=== PATIENT | female | born 1990 | race Caucasian/White ===

== ENCOUNTER 2019-06-11 16:36 | Inpatient (IN) | payer OTHER ==
[~2019-06-11] VITALS: Ht 167.6 cm; Wt 78.1 kg
[2019-06-11] MEDS: D5%-LACTATED RINGERS 1,000 ML IV SCH (17:12)
[2019-06-11] MEDS ORDERED: OXYTOCIN 30U/ 0.9% NaCL 500ML 500 ML IV PRN (17:12)
[2019-06-11] MEDS ORDERED: OXYTOCIN 30U/ 0.9% NaCL 500ML 500 ML IV ONE (17:12)
[2019-06-11] MEDS: LACTATED RINGERS 1,000 ML IV SCH (17:28)
[2019-06-11 17:30] VITALS: BP 143/95
[2019-06-11] MEDS ORDERED: FENTANYL PF 100 MCG/2ML IVPush PRN (17:30)
[2019-06-11] MEDS ORDERED: TERBUTALINE 1 MG/ML, 1ML IVPush PRN (17:30)
[2019-06-11] MEDS ORDERED: TERBUTALINE 1 MG/ML, 1ML SQ PRN (17:30)
[2019-06-11] MEDS ORDERED: CALCIUM CARBONATE 500 MG TAB.CHEW PO PRN (17:30)
[2019-06-11] MEDS ORDERED: FENTANYL PF 100 MCG/2ML IV PRN (17:30)
[2019-06-11 17:40] LABS: BASOPHILS # (AUTO) 0.02 x10^3/uL (0-0.1); BASOPHILS % (AUTO) 0 % (0-1); EOSINOPHILS # (AUTO) 0.04 x10^3/uL (0-0.4); EOSINOPHILS % (AUTO) 0 % (1-7); LYMPHOCYTES # (AUTO) 1.48 x10^3/uL (1-3.4); LYMPHOCYTES % (AUTO) 18 % (22-44); MD NO; MEAN CORPUSCULAR HEMOGLOBIN 30.8 pg (27.0-34.8); MEAN CORPUSCULAR HGB CONC 33.7 g/dL (32.4-35.8); MEAN CORPUSCULAR VOLUME 91.6 fL (80-100); MEAN PLATELET VOLUME 8.5 fL (7.4-10.4); MONOCYTES # (AUTO) 0.57 x10^3/uL (0.2-0.8); MONOCYTES % (AUTO) 7 % (2-9); NEUTROPHILS # (AUTO) 6.13 x10^3/uL (1.8-6.8); NEUTROPHILS % (AUTO) 74 % (42-75); PLATELET COUNT 239 x10^3/uL (130-400); RED BLOOD COUNT 4.39 x10^6/uL (3.82-5.3); RED CELL DISTRIBUTION WIDTH 14.7 % (9.6-15.2)
[2019-06-11 17:51] LABS: ALANINE AMINOTRANSFERASE 17 U/L (12-78); ALBUMIN 2.4 g/dL (3.4-5.0); ANION GAP 10 mmol/L (5-15); CALCIUM 8.9 mg/dL (8.5-10.1); CHLORIDE 108 mmol/L (98-107); CREATININE 0.66 mg/dL (0.55-1.02)
[2019-06-11 17:53] LABS: ALKALINE PHOSPHATASE 193 U/L (45-117); BILIRUBIN,TOTAL 0.3 mg/dL (0.2-1.0); TOTAL PROTEIN 6.3 g/dL (6.4-8.2)
[2019-06-11 18:03] LABS: MICROSCOPIC INDICATED
[2019-06-11 18:14] LABS: PROTEIN/CREATININE RATIO,URINE < 338 (0-200); TOTAL PROTEIN,URINE RANDOM < 5 mg/dL (0-12)
[2019-06-11] MEDS ORDERED: LIDOCAINE 1%, 20ML ONE (18:25)
[2019-06-11] MEDS ORDERED: MISOPROSTOL 200 MCG TABLET ONE (18:25)
[2019-06-11] MEDS ORDERED: NEWBORN KIT ONE (18:25)
[2019-06-11] MEDS ORDERED: OXYTOCIN 30U/ 0.9% NaCL 500ML 500 ML ONE (18:26)
[2019-06-11 19:26] VITALS: BP 153/97
[2019-06-11] MEDS ORDERED: ONDANSETRON 2MG/ML, 2ML ONE (20:43)
[2019-06-11] MEDS: ONDANSETRON 2MG/ML, 2ML IVPush PRN (20:44)
[2019-06-11] MEDS ORDERED: ALBUTEROL SULFATE 2.5MG/0.5ML NPPB PRN (21:30)
[2019-06-11] MEDS ORDERED: FENTANYL PF 100 MCG/2ML ONE (22:22)
[2019-06-12] MEDS: LACTATED RINGERS 1,000 ML IV SCH ×5 (01:12→21:55)
[2019-06-12] MEDS ORDERED: ONDANSETRON 2MG/ML, 2ML ONE (01:12)
[2019-06-12] MEDS: D5%-LACTATED RINGERS 1,000 ML IV SCH ×2 (01:12→09:12)
[2019-06-12] MEDS: ONDANSETRON 2MG/ML, 2ML IVPush PRN (01:13)
[2019-06-12] MEDS ORDERED: TERBUTALINE 1 MG/ML, 1ML ONE (02:20)
[2019-06-12] MEDS ORDERED: FENTANYL/BUPIV./NS/PF 250 ML EPIDCONT ONE (04:41)
[2019-06-12] MEDS ORDERED: BUPIVACAINE 0.25% ONE (04:44)
[2019-06-12] MEDS ORDERED: FENTANYL/BUPIV./NS/PF 250 ML EPIDCONT SCH (05:06)
[2019-06-12] MEDS ORDERED: ONDANSETRON 2MG/ML, 2ML IVPush PRN (05:30)
[2019-06-12] MEDS ORDERED: LACTATED RINGERS 1,000 ML IVBOLUS PRN (05:30)
[2019-06-12] MEDS ORDERED: EPHEDRINE 50 MG/ML, 1ML IVPush PRN (05:30)
[2019-06-12] MEDS ORDERED: DIPHENHYDRAMINE 50 MG/ML, 1ML IVPush PRN (05:30)
[2019-06-12] MEDS ORDERED: NALOXONE 0.4 MG/ML, 1ML IVPush PRN (05:30)
[2019-06-12] MEDS ORDERED: ONDANSETRON 2MG/ML, 2ML IV PRN (10:30)
[2019-06-12] MEDS ORDERED: DOCUSATE 100 MG CAPSULE PO PRN (10:30)
[2019-06-12] MEDS ORDERED: METHYLERGONOVINE 0.2 MG/ML IM PRN (10:30)
[2019-06-12] MEDS ORDERED: SIMETHICONE 80 MG CHEW TAB PO PRN (10:30)
[2019-06-12] MEDS ORDERED: CARBOPROST TROMETHAMINE 250 MCG/ML, 1ML IM PRN (10:30)
[2019-06-12] MEDS ORDERED: TRANEXAMIC ACID 1,000 MG in SODIUM CHLORIDE 0.9% 100 ML IVPB ONE (10:30)
[2019-06-12] MEDS ORDERED: OXYcodone/APAP 5/325MG TABLET PO PRN ×2 (10:30)
[2019-06-12] MEDS ORDERED: MISOPROSTOL 200 MCG TABLET PO PRN (10:30)
[2019-06-12] MEDS ORDERED: IBUPROFEN 600 MG TABLET ONE (10:47)
[2019-06-12] MEDS: IBUPROFEN 600 MG TABLET PO PRN ×3 (10:49→23:05)
[2019-06-12] MEDS ORDERED: OXYTOCIN 30U/ 0.9% NaCL 500ML 500 ML ONE (11:12)
[2019-06-12] MEDS: OXYTOCIN 30U/ 0.9% NaCL 500ML 500 ML IV SCH ×2 (11:23→21:55)
[2019-06-12 12:00] VITALS: BP 120/84
[2019-06-12 16:29] VITALS: BP 130/86
[2019-06-12 19:00] LABS: BASOPHILS % (AUTO) 0 % (0-1); EOSINOPHILS # (AUTO) 0.01 x10^3/uL (0-0.4); EOSINOPHILS % (AUTO) 0 % (1-7); LYMPHOCYTES # (AUTO) 1.07 x10^3/uL (1-3.4); LYMPHOCYTES % (AUTO) 7 % (22-44); MD NO; MEAN CORPUSCULAR HEMOGLOBIN 30.6 pg (27.0-34.8); MEAN CORPUSCULAR HGB CONC 33.2 g/dL (32.4-35.8); MEAN CORPUSCULAR VOLUME 92.1 fL (80-100); MEAN PLATELET VOLUME 8.4 fL (7.4-10.4); MONOCYTES # (AUTO) 0.75 x10^3/uL (0.2-0.8); MONOCYTES % (AUTO) 5 % (2-9); NEUTROPHILS # (AUTO) 14.13 x10^3/uL (1.8-6.8); NEUTROPHILS % (AUTO) 89 % (42-75); PLATELET COUNT 206 x10^3/uL (130-400); RED BLOOD COUNT 3.83 x10^6/uL (3.82-5.3); RED CELL DISTRIBUTION WIDTH 14.5 % (9.6-15.2)
[2019-06-12 20:00] VITALS: BP 131/86
[2019-06-13 00:02] VITALS: BP 116/80
[2019-06-13 03:35] VITALS: BP 112/76
[2019-06-13] MEDS: LACTATED RINGERS 1,000 ML IV SCH ×2 (04:52→13:06)
[2019-06-13] MEDS: OXYTOCIN 30U/ 0.9% NaCL 500ML 500 ML IV SCH (04:52)
[2019-06-13] MEDS: IBUPROFEN 600 MG TABLET PO PRN ×2 (05:19→12:03)
[2019-06-13 07:45] VITALS: BP 122/86
[2019-06-13] MEDS ORDERED: PRENATAL VIT/IRON/FA 1 EACH TABLET PO SCH (09:00)
[2019-06-13] MEDS ORDERED: IBUP-1222 PO (10:58)
[2019-06-13] MEDS ORDERED: OXYC-302 PO (10:58)
== END 2019-06-13 18:00 | disposition home or self-care (01) | DRG 807 ==
LOC: LDOP 16:36 → LDIP 17:17 → 2NW 06-12 11:57
PROVIDERS: ADMIT Obstetrics & Gynecology; ATTEND Obstetrics & Gynecology
PROC: 10D07Z6 Extraction of Products of Conception, Vacuum, Via Natural or Artificial Opening (ICD-10-PCS; principal; 2019-06-12)
PROC: 0KQM0ZZ Repair Perineum Muscle, Open Approach (ICD-10-PCS; 2019-06-12)
PROC: 10907ZC Drainage of Amniotic Fluid, Therapeutic from Products of Conception, Via Natural or Artificial Opening (ICD-10-PCS; 2019-06-12)
DX: O13.4 Gestational [pregnancy-induced] hypertension without significant proteinuria, complicating childbirth (principal); Z37.0 Single live birth; O99.52 Diseases of the respiratory system complicating childbirth; J45.909 Unspecified asthma, uncomplicated; F32.9 Major depressive disorder, single episode, unspecified; O99.344 Other mental disorders complicating childbirth; O70.1 Second degree perineal laceration during delivery; O76 Abnormality in fetal heart rate and rhythm complicating labor and delivery; Z3A.38 38 weeks gestation of pregnancy; Z83.3 Family history of diabetes mellitus
CPT/HCPCS: 36415; 80053; 81001; 82570; 82803; 84156; 84550; 85025; 86592; 86850; 86900; G0378; J2405; J3010; J3490; J2590; J7120